=== PATIENT | male | born 1970 | race Caucasian/White ===

== ENCOUNTER 2017-02-18 15:40 | Emergency (ER) | payer OTHER ==
[~2017-02-18] VITALS: Ht 182.9 cm; Wt 128.7 kg
[~2017-02-18 15:40] MED LIST: Ecotrin PO
[2017-02-18 17:19] LABS: HEMATOCRIT 46.9 % (38.0-50.0); MCH 30.8 PG (29.0-34.0); MCHC 34.1 G/DL (30.0-36.0); MCV 90.2 FL (86-99); MEAN PLAT.VOLUME 9.5 uM^3 (9.0-12.4); PLATELET COUNT 217 K/uL (156-360); RBC DIS.WIDTH-CV 11.7 % (11.8-14.6); RBC DIS.WIDTH-SD 38.6 % (39-53); WHITE BLOOD COUNT 9.3 K/uL (4.1-10.2)
[2017-02-18 17:31] LABS: CHLORIDE 105 mEq/L (99-109); POTASSIUM 4.6 mEq/L (3.7-5.4); SODIUM 140 mEq/L (136-147)
[2017-02-18 17:32] LABS: ADD MIUA? NO; BILIRUBIN NEGATIVE; BLOOD NEGATIVE; COLOR YELLOW ((YELLOW)); GLUCOSE (STRIP) NEGATIVE; KETONES NEGATIVE; LEUKOCYTES NEGATIVE; NITRITE NEGATIVE; PROTEIN (STRIP) NEGATIVE; SPECIFIC GRAVITY 1.017 (1.000-1.030); UROBILINOGEN 0.2 MG/DL (0.2-1.0)
[2017-02-18 17:34] LABS: GLUCOSE 87 mg/dL (70-99)
[2017-02-18 17:35] LABS: ANION GAP 9 MEQ/L (2-14); TOTAL BILIRUBIN 0.4 mg/dL (0.0-1.0)
[2017-02-18 17:36] LABS: SERUM ETHYL ALCOHOL < 10 mg/dL
[2017-02-18 17:37] LABS: GFR ESTIMATE (CALCULATED) > 59 mL/min/
[2017-02-18 17:38] LABS: ALKALINE PHOSPHATASE 106 IU/L (3-129)
[2017-02-18 17:39] LABS: AMPHETAMINE NEGATIVE (500 ng/mL); BARBITURATES NEGATIVE (200 ng/mL); BENZODIAZEPINES NEGATIVE (150 ng/mL); COCAINE NEGATIVE (150 ng/mL); INTERNAL CONTROLS VALID? YES; METHADONE NEGATIVE (200 ng/mL); METHAMPHETAMINE NEGATIVE (500 ng/mL); OPIATES (MORPHINE) NEGATIVE (100 ng/mL); OXYCODONE NEGATIVE (100 ng/mL); PHENCYCLIDINE NEGATIVE (25 ng/mL); PROPOXYPHENE NEGATIVE (300 ng/mL); THC CANNABINOIDS NEGATIVE (50 ng/mL); TRICYCLIC ANTIDEPRESSANTS NEGATIVE (300 ng/mL); UREA NITROGEN (BUN) 20 mg/dL (9-23)
[2017-02-18 17:41] LABS: SALICYLATE < 5.0 MG/DL (15-30)
[2017-02-18 17:58] VITALS: BP 130/89
== END 2017-02-18 17:59 | disposition home or self-care (01) ==
LOC: EME 15:40
PROVIDERS: Physician Assistant
DX: F33.2 Major depressive disorder, recurrent severe without psychotic features (principal); F41.9 Anxiety disorder, unspecified; F43.0 Acute stress reaction; R45.84 Anhedonia; J45.909 Unspecified asthma, uncomplicated; Z87.442 Personal history of urinary calculi
CPT/HCPCS: 71020; 80053; 81003; 85027; 90839; 93005; 99281; 99283; G0480

== ENCOUNTER 2017-10-28 15:08 | Emergency (ER) | payer OTHER ==
[~2017-10-28] VITALS: Ht 185.4 cm; Wt 149.6 kg
[2017-10-28 16:00] LABS: HEMATOCRIT 44.3 % (38.0-50.0); MCH 30.4 PG (29.0-34.0); MCHC 33.9 G/DL (30.0-36.0); MCV 89.7 FL (86-99); PLATELET COUNT 225 K/uL (156-360); RBC DIS.WIDTH-CV 12.4 % (11.8-14.6); RBC DIS.WIDTH-SD 40.7 % (39-53); RED BLOOD COUNT 4.94 M/uL (4.00-5.50); WHITE BLOOD COUNT 9.2 K/uL (4.1-10.2)
[2017-10-28 16:14] LABS: CHLORIDE 107 mEq/L (99-109); POTASSIUM 4.3 mEq/L (3.7-5.4); SODIUM 145 mEq/L (136-147)
[2017-10-28 16:16] LABS: GLUCOSE 106 mg/dL (70-99)
[2017-10-28 16:19] LABS: SERUM ETHYL ALCOHOL < 10 mg/dL
[2017-10-28 16:20] LABS: GFR ESTIMATE (CALCULATED) > 59 mL/min/ (58.99-99999)
[2017-10-28 16:21] LABS: UREA NITROGEN (BUN) 17 mg/dL (9-23)
[2017-10-28 17:24] LABS: AMPHETAMINE NEGATIVE (500 ng/mL); BENZODIAZEPINES NEGATIVE (150 ng/mL); COCAINE NEGATIVE (150 ng/mL); METHAMPHETAMINE NEGATIVE (500 ng/mL); OPIATES (MORPHINE) NEGATIVE (100 ng/mL); PHENCYCLIDINE NEGATIVE (25 ng/mL); THC CANNABINOIDS NEGATIVE (50 ng/mL); TRICYCLIC ANTIDEPRESSANTS PRESUMPTIVE POSITIVE (300 ng/mL)
[2017-10-28 17:25] LABS: BARBITURATES NEGATIVE (200 ng/mL); BUPRENORPHINE NEGATIVE (10 ng/mL); METHADONE NEGATIVE (200 ng/mL); OXYCODONE NEGATIVE (100 ng/mL); PROPOXYPHENE NEGATIVE (300 ng/mL)
[2017-10-29] MEDS ORDERED: DEPAKOTE250 MG PO (10:13)
[2017-10-29] MEDS ORDERED: ADVIL,NUPRIN,M200 MG PO (10:13)
[2017-10-29] MEDS ORDERED: OMEPRAZOLE40 M1 PO (10:14)
[2017-10-29] MEDS ORDERED: SEROQUEL300 MG PO ×2 (10:15)
[2017-10-29] MEDS ORDERED: PROPRANOLOL HCL20 MG PO (10:16)
[2017-10-29] MEDS ORDERED: GABAPENTIN300 MG PO (10:16)
[2017-10-29] MEDS ORDERED: ATORVASTATIN CA20 MG PO (10:20)
[2017-10-29 11:06] VITALS: BP 115/73
== END 2017-10-29 11:07 ==
LOC: EME 15:08
DX: F32.9 Major depressive disorder, single episode, unspecified (principal); R45.851 Suicidal ideations; F31.4 Bipolar disorder, current episode depressed, severe, without psychotic features; F41.1 Generalized anxiety disorder; J45.909 Unspecified asthma, uncomplicated; Z79.82 Long term (current) use of aspirin
CPT/HCPCS: 80048; 85027; 90837; 99281; 99285; G0480